=== PATIENT | male | born 1995 | race Caucasian/White ===

== ENCOUNTER 2024-09-15 19:05 | Emergency (ER) | payer OTHER, SELFPAY ==
[2024-09-15 19:15] VITALS: BP 142/88; PULSE 90; O2SAT 99
[2024-09-15 19:33] VITALS: BP 126/80; PULSE 99; RESP 18; TEMP 36.7; O2SAT 95
[2024-09-15 20:00] VITALS: BP 126/80; PULSE 99; RESP 18; TEMP 36.7; O2SAT 95; BMI 30.7
--- NOTE | 2024-09-15 20:00 | PC.NURSE ---
Pt standing at bedside, pulling on collar, requesting to leave. T/w informing MD Khris Gillespie that pt was requesting to leave. Primary RN notified.
--- NOTE | 2024-09-15 20:24 | PC.NURSE ---
Pt pacing ED, requesting to sign out ama Pts family at bedside Plan of care ongoing.
== END 2024-09-16 06:13 | disposition left against medical advice (07) ==
PROVIDERS: Emergency Provider Student in an Organized Health Care Education/Training Program
DX: M54.2 Cervicalgia (principal); Z53.21 Procedure and treatment not carried out due to patient leaving prior to being seen by health care provider
CPT/HCPCS: 99281; 99284